=== PATIENT | male | born 1955 | race African-American/Black ===

== ENCOUNTER 2016-06-19 12:00 | Emergency (ER) | payer MEDICARE, OTHER ==
[~2016-06-19] VITALS: Ht 180.3 cm; Wt 122.7 kg
[~2016-06-19 12:00] MED LIST: ALLE10TA12; AMLO5TAB96 PO; CARB0.5D16 EACH EYE; CITA-48 PO; FISH1000 PO; HYDR1CAP30 PO; LISI2.5T55 PO; MECL-62 PO; METO50TA PO; NOVO7030P2 SQ; PRIMPOW10 XX; PROT40TA PO; ST JTAB PO; SYMB160A INH; TRAZ100 PO; ULTR50TA PO
[2016-06-19 12:03] VITALS: BP 180/117; PULSE 97; RESP 16; TEMP 98.1; O2SAT 98
[2016-06-19] MEDS ORDERED: ROBA500T PO (15:20)
[2016-06-19] MEDS ORDERED: NAPR500T PO (15:20)
--- NOTE | 2016-06-19 15:20 | PD ---
HPI Chief Complaint: Back/ Neck Pain or Injury Time Seen by Provider: 15:18 Travel History International Travel<30 days: No Contact w/Intl Traveler<30days: No Traveled to known affect area: No History of Present Illness HPI 60-year-old male presents to the emergency department with exacerbation of chronic low back pain. History of low back pain since the . Has history of sciatica also and says the pain is radiating down but the back of both of his legs. Has been moving in the past few days but says he hasn't lifted heavy stuff. Denies new or recent injury. Denies encopresis, incontinence, saddle anesthesias. Denies paresthesias, loss of sensation, decreased range of motion , decreased strength to bilateral lower extremities. Denies fever, chills, nausea, vomiting. Denies IV drug use. Denies cancer. [facility] and Percocet for his chronic low back pain but he asked for them to take him off of it, and they did. He says usually gets 2 injections that help with his exacerbations of his low back pain, but does not know the name of the medications. No other modifying factors or associated signs and symptoms. PFSH Past Medical History Arthritis: No Blood Disorders: No Anxiety: No Depression: No Heart Rhythm Problems: Yes Cancer: Yes ([facility], 2007) Cardiac Catheterization: Yes (06/04/10-[facility]) Cardiovascular Problems: Yes High Cholesterol: Yes Chest Pain: Yes Congestive Heart Failure: No Cerebrovascular Accident: No Coronary Artery Disease: Yes Diabetes: Yes Diminished Hearing: Yes ([facility]) Endocrine: Yes Gastrointestinal Disorders: No Genitourinary: No Hypertension: Yes Immune Disorder: No Implanted Vascular Access Dvce: Yes Insomnia: Yes Musculoskeletal: No Neurologic: No Psychiatric: No Reproductive: No Respiratory: No Immunizations Current: Yes Migraines: Yes Myocardial Infarction: No Radiation Therapy: No Seizures: Yes Thyroid Disease: No PNEUMOCCOCAL Vaccine (Year): 1 Past Surgical History AICD: Yes ([employer] - ICD E030 842469, LEAD 0182 [id number]) Body Medical Devices: AICD Cardiac Surgery: Yes (AICD) Coronary Artery Bypass Graft: No Neurologic Surgery: No Pacemaker: Yes Other Surgery: Yes (AICD PLACEMENT) Social History Alcohol Use: No Tobacco Use: No Substance Use: No Allergies-Medications (Allergen,Severity, Reaction): Coded Allergies: No Known Allergies (Verified , 06/19/16) Reported Meds & Prescriptions Reported Meds & Active Scripts Active Robaxin (Methocarbamol) 500 Mg Tab 500 Mg PO QID PRN Naproxen 500 Mg Tab 500 Mg PO BID PRN 10 Days Reported Protonix (Pantoprazole Sodium) 40 Mg Tab 40 Mg PO DAILY Symbicort (Budesonide/Formoterol Fumarate) 160 Mcg/4.5 Mcg Aer 2 Puff INH BID * SHAKE WELL BEFORE USE * Lisinopril 2.5 mg (Lisinopril) 2.5 Mg Tab 1 Tab PO DAILY Allergy (Loratadine) 10 Mg Tab DAILY Meclizine Hcl25 M2 25 Mg Tab 25 Mg PO BID Hydroxyzine Pam25 M1 25 Mg Cap 25 Mg PO TID Primidone 150 Mg XX BID PRN Trazodone HCl 100 Mg Tab 100 Mg PO HS Aspirin Ec Low Strength (Aspirin) 81 Mg Tab 81 Mg PO DAILY Ultram (Tramadol HCl) 50 Mg Tab 50 Mg PO Q6HR PRN Fish Oil 1,000 Mg Cap 1,000 Mg PO BID Artificial Tears 15 Ml Soln 1 Drop EACH EYE TID Novolin 70/30 (Insulin Human Isoph/Insulin Regular) 100 Units/Ml Inj 20 Units SQ BID Citalopram Hydrobromide 40 Mg Tab 20 Mg PO DAILY Norvasc (Amlodipine Besylate) 5 Mg Tab 10 Mg PO DAILY Metoprolol Tartrate 50 mg (Metoprolol Tartrate) 50 Mg Tab 75 Mg PO BID Review of Systems Except as stated in HPI: all other systems reviewed are Neg Physical Exam Narrative GENERAL: Well-nourished, well-developed male patient, in no acute distress SKIN: Warm and dry. HEAD: Atraumatic. Normocephalic. EYES: Pupils equal and round. No scleral icterus. No injection or drainage. ENT: Mucosa pink and moist. Airway patent. NECK: Trachea midline. CARDIOVASCULAR: Regular rate. RESPIRATORY: No accessory muscle use. GASTROINTESTINAL: Rounded. MUSCULOSKELETAL: Bilateral lower extremities supple and non-tense with 2+ pedal pulses and sensory intact; with full range of motion and 5/5 strength. Active dorsiflexion and extension of bilateral feet. Bilateral straight leg raise is negative for low back pain. Ambulatory with normal gait. Sitting up in bed at 90. No obvious deformities. No clubbing. No cyanosis. No edema. BACK: No midline point tenderness on palpation of the lumbar, thoracic, or cervical spine. Tenderness on palpation of bilateral iliosacral area. No obvious deformities. NEUROLOGICAL: Awake and alert. Oriented 3. No obvious cranial nerve deficits. Motor grossly within normal limits. Normal speech. Moves all extremities. 5/5 strength to all extremities. Sensory intact. PSYCHIATRIC: Appropriate mood and affect; insight and judgment normal. Data Data Last Documented VS Vital Signs Date Time Temp Pulse Resp B/P Pulse Ox O2 Delivery O2 Flow Rate FiO2 06/19/16 15:51 79 20 160/99 95 Room Air 06/19/16 12:03 98.1 Orders Ketorolac Inj (Toradol Inj) (06/19/16 15:30) Orphenadrine Inj (Norflex Inj) (06/19/16 15:30) [facility] Medical Decision Making Medical Screen Exam Complete: Yes Emergency Medical Condition: Yes Medical Record Reviewed: Yes Differential Diagnosis Acute exacerbation of chronic low back pain, sciatica, low back strain Narrative Course 60-year-old male physical exam consistent with acute exacerbation of chronic low back pain. No midline point tenderness on palpation of the lumbar spine. Repeatable tenderness to bilateral iliosacral areas. Patient also has sciatica with current exacerbation. [facility] Denies encopresis, incontinence, saddle anesthesias. Denies IV drug use or cancer. Patient is afebrile. He denies fever, chills, nausea, vomiting. Has history of hypertension and blood pressure is elevated in the ER. He is asymptomatic at this time and is compliant with his medications. Toradol and Norflex ordered. Blood pressure will be rechecked prior to discharge. 1604: Blood pressure recheck 160/99. Robaxin and naproxen prescribed for home. Patient is medically cleared and stable for discharge. Discussed reasons to return to the emergency department. Instructed patient to follow up with primary care provider. Patient agrees with treatment plan. The patients vital signs are stable and the patient is stable for outpatient follow-up and treatment. Patient discharged home, stable and in no acute distress. Diagnosis Primary Impression: Acute exacerbation of chronic low back pain Additional Impression: Sciatica Qualified Code: M54.31 - Bilateral sciatica Referrals: Primary Care Physician Patient Instructions: Acute Low Back Pain (ED), General Instructions, Sciatica (ED) Additional Instructions: Tylenol as directed and as needed for pain Robaxin as prescribed and as needed for muscle spasms Heating pad and/or ice to affected area to reduce pain Avoid aggravating activities; increase activity as tolerated Follow-up with primary care provider Return to emergency department immediately with worsening of symptoms Med/Other Pt SpecificInfo: Prescription(s) given Scripts Methocarbamol (Robaxin)500 Mg [id number] Mg PO QID PRN (MUSCLE SPASM) #30 TAB Ref 0 Prov:Olya Grajeda 06/19/16 Naproxen 500 Mg [id number] Mg PO BID PRN (PAIN SCALE 1 TO 10) 10 Days Ref 0 Prov:Olya Grajeda 06/19/16 Disposition: 01 DISCHARGE HOME Condition: Stable Olya Grajeda Jun 19, 2016 15:20
[2016-06-19] MEDS ORDERED: KETOROLAC TROMETHAMINE 60 MG/2 ML (IM) VIAL IM ONE (15:30)
[2016-06-19] MEDS ORDERED: ORPHENADRINE INJ 60 MG/2 ML AMP IM ONE (15:30)
[2016-06-19 15:51] VITALS: BP 160/99; PULSE 79; RESP 20; O2SAT 95
== END 2016-06-19 16:05 | disposition home or self-care (01) ==
LOC: NEPB 12:00
DX: M54.5 Low back pain (principal); G89.29 Other chronic pain; M54.30 Sciatica, unspecified side; E78.00 Pure hypercholesterolemia, unspecified; I10 Essential (primary) hypertension; E11.9 Type 2 diabetes mellitus without complications; Z79.4 Long term (current) use of insulin; Z95.0 Presence of cardiac pacemaker; Z95.810 Presence of automatic (implantable) cardiac defibrillator
CPT/HCPCS: 96372; 99283; J1885; J2360

== ENCOUNTER 2016-06-24 12:50 | Emergency (ER) | payer OTHER ==
[~2016-06-24] VITALS: Ht 180.3 cm; Wt 109.0 kg
[~2016-06-24 12:50] MED LIST changes: +NAPR500T PO; +ROBA500T PO
[2016-06-24 12:52] VITALS: BP 156/95; PULSE 98; RESP 14; TEMP 97.9; O2SAT 97
[2016-06-24] MEDS ORDERED: KETOROLAC TROMETHAMINE 60 MG/2 ML (IM) VIAL IM ONE (14:00)
[2016-06-24] MEDS ORDERED: methylPREDNISolone SOD SUCC 125 MG/2 ML VIAL IM ONE (14:00)
[2016-06-24] MEDS ORDERED: ORPHENADRINE INJ 60 MG/2 ML AMP IM ONE (14:00)
[2016-06-24 14:36] VITALS: BP 134/71; PULSE 88; TEMP 98.5; O2SAT 94
[2016-06-24 15:00] VITALS: RESP 17
[2016-06-24] MEDS ORDERED: PANT40TA3 PO (15:02)
[2016-06-24] MEDS ORDERED: NAPR500 PO (15:02)
[2016-06-24] MEDS ORDERED: ASPI1TAB91 PO (15:02)
[2016-06-24] MEDS ORDERED: AMLO10TA2 PO (15:02)
[2016-06-24] MEDS ORDERED: VENL75TA PO (15:02)
[2016-06-24] MEDS ORDERED: CITA40TA4 PO (15:02)
[2016-06-24] MEDS ORDERED: LEVI20TA PO (15:02)
[2016-06-24] MEDS ORDERED: TRAZ100T4 PO (15:02)
[2016-06-24] MEDS ORDERED: METO100T PO (15:02)
[2016-06-24] MEDS ORDERED: PRIM50TA5 PO (15:02)
[2016-06-24] MEDS ORDERED: HYDR1CAP30 PO (15:02)
[2016-06-24] MEDS ORDERED: MULTTAB62 PO (15:02)
[2016-06-24] MEDS ORDERED: NOVO7030P2 SQ (15:02)
[2016-06-24] MEDS ORDERED: ROBA500T PO (15:02)
--- NOTE | 2016-06-24 15:20 | PD ---
HPI Chief Complaint: Back/ Neck Pain or Injury Time Seen by Provider: 13:37 Travel History International Travel<30 days: No Contact w/Intl Traveler<30days: No Traveled to known affect area: No History of Present Illness HPI This patient complains of back pain. He has left low back pain radiating down his left leg to about the mid calf level. He has history of flares of back pain just like this for the last 35 years. He follows at the [facility] and has an orthopedist. He has not contacted the orthopedist for follow-up. He was seen here few days ago and prescribed some medication which aren't really helping him that much. He does not want narcotics. No injury. No neurologic deficit. Denies fever. Severity is moderate. PFSH Past Medical History Arthritis: No Blood Disorders: No Anxiety: No Depression: No Heart Rhythm Problems: Yes Cancer: Yes ([facility], 2007) Cardiac Catheterization: Yes (06/04/10-[facility]) Cardiovascular Problems: Yes High Cholesterol: Yes Chest Pain: Yes Congestive Heart Failure: No Cerebrovascular Accident: No Coronary Artery Disease: Yes Diabetes: Yes Patient Takes Glucophage: No (insulin) Diminished Hearing: Yes ([facility]) Endocrine: Yes Gastrointestinal Disorders: No Genitourinary: No Hypertension: Yes Immune Disorder: No Implanted Vascular Access Dvce: Yes Insomnia: Yes Musculoskeletal: No Neurologic: No Psychiatric: No Reproductive: No Respiratory: No Immunizations Current: Yes Migraines: Yes Myocardial Infarction: No Radiation Therapy: No Seizures: Yes Thyroid Disease: No Tetanus Vaccination: < 5 Years PNEUMOCCOCAL Vaccine (Year): 1 Past Surgical History AICD: Yes ([employer] - ICD E030 795150, LEAD 0189 [id number]) Body Medical Devices: AICD Cardiac Surgery: Yes (AICD) Coronary Artery Bypass Graft: No Neurologic Surgery: No Pacemaker: Yes Other Surgery: Yes (AICD PLACEMENT) Family History Family Myocardial Infarction: Yes (mother) Social History Alcohol Use: No Tobacco Use: No Substance Use: No Allergies-Medications (Allergen,Severity, Reaction): Coded Allergies: No Known Allergies (Verified , 06/24/16) Reported Meds & Prescriptions Reported Meds & Active Scripts Active Reported Metoprolol Tartrate 100 Mg Tab 100 Mg PO Q12HR Aspirin Adult Low Strength (Aspirin) 81 Mg Tabdr 81 Mg PO DAILY Robaxin (Methocarbamol) 500 Mg Tab 500 Mg PO QID PRN Multi-Vitamin/Minerals (Multiple Vitamins W/ Minerals) 1 Tab Tab 1 Tab PO DAILY Effexor (Venlafaxine HCl) 75 Mg Tab 225 Mg PO DAILY Primidone 50 Mg Tab 150 Mg PO BID Pantoprazole (Pantoprazole Sodium) 40 Mg Tab 40 Mg PO BIDAC Levitra (Vardenafil) 20 Mg Tab 20 Mg PO DAILY PRN Naprosyn (Naproxen) 500 Mg Tab 500 Mg PO BID Trazodone (Trazodone HCl) 100 Mg Tab 300 Mg PO HS PRN Citalopram (Citalopram Hydrobromide) 40 Mg Tab 40 Mg PO DAILY Hydroxyzine Pamoate 25 Mg Cap 25 Mg PO TID Novolin 70-30 Inj (Insulin Human Isoph/Insulin Regular) 1,000 Unit/10 Ml Vial 30 Units SQ BIDAC Amlodipine (Amlodipine Besylate) 10 Mg Tab 10 Mg PO DAILY Review of Systems General / Constitutional: No: Fever HENT: No: Headaches Cardiovascular: No: Chest Pain or Discomfort Respiratory: No: Cough Physical Exam Narrative GASTROINTESTINAL: Abdomen soft, non-tender, nondistended. Positive bowel sounds. No hepato-splenomegaly, or palpable masses. No guarding. SKIN: Inspection shows no rash or ulcers. Palpation shows no induration or nodules. NEUROLOGICAL: Awake and alert. Pupils are equal round and reactive. Motor and sensory grossly within normal limits. Five out of 5 muscle strength in all muscle groups. Normal speech. Positive straight leg raise on the left side and negative crossed straight leg raise Back: No midline or CVA tenderness. Data Data Last Documented VS Vital Signs Date Time Temp Pulse Resp B/P Pulse Ox O2 Delivery O2 Flow Rate FiO2 06/24/16 14:36 98.5 88 134/71 94 06/24/16 13:36 18 06/24/16 12:52 Room Air Orders Ketorolac Inj (Toradol Inj) (06/24/16 14:00) Methylprednisolone So Succ Inj (Solumedr (06/24/16 14:00) Orphenadrine Inj (Norflex Inj) (06/24/16 14:00) MDM Medical Decision Making Medical Screen Exam Complete: Yes Emergency Medical Condition: Yes Medical Record Reviewed: Yes Differential Diagnosis Sciatica, lumbar strain, pyelonephritis Narrative Course I have reviewed the patient's electronic medical record. Reviewed his visit from a few days ago when he was here for the same thing Presentation seems very consistent with one of his flares of chronic sciatica. He is neurologically intact and there is no red flags to suggest emergent imaging is indicated. He says that steroid injection is helpful to him and requests that He does not want narcotics I gave him injection of Norflex and Solu-Medrol and Toradol He does have an orthopedist I encouraged him to follow up with Diagnosis Primary Impression: Acute exacerbation of chronic low back pain Additional Instructions: The patient was advised to follow up with their physician and return if they worsen. Med/Other Pt SpecificInfo: Other Disposition: 01 DISCHARGE HOME Condition: Stable Armando Campbell MD Jun 24, 2016 15:20
[2016-06-24 15:57] VITALS: BP 140/76; TEMP 98
== END 2016-06-24 15:30 | disposition home or self-care (01) ==
LOC: NEPD 12:50
DX: M54.5 Low back pain (principal); E11.9 Type 2 diabetes mellitus without complications; I10 Essential (primary) hypertension; E78.00 Pure hypercholesterolemia, unspecified
CPT/HCPCS: 96372; 99283; J1885; J2360; J2930

== ENCOUNTER 2017-03-30 15:13 | Emergency (ER) | payer OTHER ==
[~2017-03-30] VITALS: Ht 180.3 cm; Wt 123.0 kg
[~2017-03-30 15:13] MED LIST changes: -ALLE10TA12; +AMLO10TA2 PO; -AMLO5TAB96 PO; +ASPI1TAB91 PO; -CARB0.5D16 EACH EYE; -CITA-48 PO; +CITA40TA4 PO; -FISH1000 PO; +LEVI20TA PO; -LISI2.5T55 PO; -MECL-62 PO; +METO100T PO; -METO50TA PO; +MULTTAB62 PO; +NAPR500 PO; -NAPR500T PO; +PANT40TA3 PO; +PRIM50TA5 PO; -PRIMPOW10 XX; -PROT40TA PO; -ST JTAB PO; -SYMB160A INH; -TRAZ100 PO; +TRAZ100T4 PO; -ULTR50TA PO; +VENL75TA PO
[2017-03-30 15:15] VITALS: BP 110/61; PULSE 84; RESP 16; TEMP 98.6; O2SAT 94
== END 2017-03-30 19:50 | disposition left against medical advice (07) ==
LOC: NED 15:13
DX: R06.02 Shortness of breath (principal); Z53.21 Procedure and treatment not carried out due to patient leaving prior to being seen by health care provider
CPT/HCPCS: 99281

== ENCOUNTER 2017-11-15 08:09 | Emergency (ER) | payer OTHER ==
[~2017-11-15] VITALS: Ht 180.3 cm; Wt 120.0 kg
[~2017-11-15 08:09] MED LIST changes: -ASPI1TAB91 PO; +ASPI81TA16 PO
[2017-11-15 08:15] VITALS: BP 142/87; PULSE 94; RESP 16; TEMP 97.9; O2SAT 95
[2017-11-15] MEDS ORDERED: TRAZ300T2 PO (08:27)
[2017-11-15] MEDS ORDERED: traMADol HCL 50 MG TAB PO ONE (08:45)
--- NOTE | 2017-11-15 09:02 | RADRPT ---
EXAM DATE: 11/15/2017 8:58 AM EDT AGE/SEX: 62 years / Male INDICATIONS: Bilateral left ankle pain, fell CLINICAL DATA: This is the patient's initial encounter. Patient reports that signs and symptoms have been present for 2 days and indicates a pain score of 8/10. MEDICAL/SURGICAL HISTORY: . Hypercholesterolemia. Hypertension. Diabetes mellitus type 2. Coron beatriz artery disease . Defibrillator, pacemaker, cardiac catheterization COMPARISON: No prior [facility] exams available for comparison. FINDINGS: Multiple views of the left ankle demonstrate a spiral comminuted fracture, nondisplaced involving the distal fibula with extension to the ankle mortise. The ankle mortise is symmetric and the talar dome is intact. Moderate lateral soft tissue edema is present. CONCLUSION: Comminuted nondisplaced fracture of the distal left fibula with extension to the ankle mortise. No ev idence of ankle mortise disruption. Electronically signed by: Krysta Barros MD 11/15/2017 9:01 AM EDT
--- NOTE | 2017-11-15 09:03 | RADRPT ---
EXAM DATE: 11/15/2017 9:00 AM EDT AGE/SEX: 62 years / Male INDICATIONS: Evaluate pelvis for trauma, fell CLINICAL DATA: This is the patient's initial encounter. Patient reports that signs and symptoms have been present for 2 days and indicates a pain score of 0/10. MEDICAL/SURGICAL HISTORY: . Hypercholesterolemia. Hypertension. Diabetes mellitus type 2. Coron beatriz artery disease . Defibrillator, pacemaker, cardiac catheterization COMPARISON: No prior [facility] exams available for comparison. FINDINGS: Examination of the pelvis demonstrates no evidence of fracture or dislocation. Bony mineralization i s normal. There is no widening of the sacroiliac joints. No foreign body is identified. CONCLUSION: No evidence of fracture. Electronically signed by: Krysta Barros MD 11/15/2017 9:01 AM EDT
[2017-11-15 10:08] VITALS: RESP 16
[2017-11-15] MEDS ORDERED: TRAM50TA PO (11:51)
--- NOTE | 2017-11-15 11:51 | PD ---
HPI Chief Complaint: Pain: Acute or Chronic Time Seen by Provider: 08:23 Travel History International Travel<30 days: No Contact w/Intl Traveler<30days: No Traveled to known affect area: No History of Present Illness HPI Patient is a 62 year old male who comes in complaining of pain to his left ankle after a fall last night. Patient says that he fell getting out of a cab last night. He had his left ankle when he fell. He denies hitting his head. He has been walking, but with then. He says he tried putting some Voltaren cream on it which is helped somewhat, but he is still having a lot of pain. He denies any loss of consciousness. He was in his normal state of health prior to the fall. He does have some pain to his right hip. Severity is mild to moderate. PFSH Past Medical History Arthritis: No Blood Disorders: No Anxiety: No Depression: No Heart Rhythm Problems: Yes Cancer: Yes ([facility], 2007) Cardiac Catheterization: Yes (06/04/10[facility]) Cardiovascular Problems: Yes High Cholesterol: Yes Chest Pain: Yes Congestive Heart Failure: No Cerebrovascular Accident: No Coronary Artery Disease: Yes Diabetes: Yes Patient Takes Glucophage: No Diminished Hearing: Yes ([facility] E[facility]) Endocrine: Yes Gastrointestinal Disorders: No Genitourinary: No Hypertension: Yes Immune Disorder: No Implanted Vascular Access Dvce: Yes Insomnia: Yes Musculoskeletal: No Neurologic: No Psychiatric: No Reproductive: No Respiratory: No Immunizations Current: Yes Migraines: Yes Myocardial Infarction: No Radiation Therapy: No Seizures: Yes Thyroid Disease: No Tetanus Vaccination: < 5 Years Influenza Vaccination: Yes PNEUMOCCOCAL Vaccine (Year): 1 Past Surgical History AICD: Yes ([employer] - ICD E030 [id number], LEAD 0189 [id number]) Body Medical Devices: AICD Cardiac Surgery: Yes (AICD) Coronary Artery Bypass Graft: No Neurologic Surgery: No Pacemaker: Yes Other Surgery: Yes (AICD PLACEMENT) Family History Family Myocardial Infarction: Yes (mother) Social History Alcohol Use: No Tobacco Use: No Substance Use: No Allergies-Medications (Allergen,Severity, Reaction): Coded Allergies: No Known Allergies (Verified Adverse Reaction, Unknown, 11/15/17) Reported Meds & Prescriptions Reported Meds & Active Scripts Active Reported Trazodone (Trazodone HCl) 300 Mg Tab 300 Mg PO HS Metoprolol Tartrate 100 Mg Tab 100 Mg PO Q12HR Aspirin Adult Low Strength (Aspirin) 81 Mg Tabdr 81 Mg PO DAILY Robaxin (Methocarbamol) 500 Mg Tab 500 Mg PO QID PRN Multi-Vitamin/Minerals (Multiple Vitamins W/ Minerals) 1 Tab Tab 1 Tab PO DAILY Effexor (Venlafaxine HCl) 75 Mg Tab 225 Mg PO DAILY Primidone 50 Mg Tab 150 Mg PO BID Pantoprazole (Pantoprazole Sodium) 40 Mg Tab 40 Mg PO BIDAC Levitra (Vardenafil) 20 Mg Tab 20 Mg PO DAILY PRN Naprosyn (Naproxen) 500 Mg Tab 500 Mg PO BID Citalopram (Citalopram Hydrobromide) 40 Mg Tab 40 Mg PO DAILY Hydroxyzine Pamoate 25 Mg Cap 25 Mg PO TID Novolin 70-30 Inj (Insulin Human Isoph/Insulin Regular) 1,000 Unit/10 Ml Vial 30 Units SQ BIDAC Amlodipine (Amlodipine Besylate) 10 Mg Tab 10 Mg PO DAILY Review of Systems General / Constitutional: No: Fever, Chills HENT: No: Headaches, Lightheadedness Cardiovascular: No: Chest Pain or Discomfort Respiratory: No: Shortness of Breath Gastrointestinal: No: Nausea, Vomiting Musculoskeletal: Positive: Edema, Pain Skin: No Rash, No Change in Pigmentation Neurologic: No: Weakness, Dizziness, Sensory Disturbance Physical Exam Narrative GENERAL: Awake and alert, in no acute distress. SKIN: Focused skin assessment warm/dry. HEAD: Atraumatic. Normocephalic. EYES: Pupils equal and round. No scleral icterus. EOMI. ENT: Mucous membranes pink and moist. NECK: Trachea midline. No JVD. No Cervical spine tenderness. CARDIOVASCULAR: Regular rate and rhythm. No murmur appreciated. RESPIRATORY: No accessory muscle use. Clear to auscultation. Breath sounds equal bilaterally. MUSCULOSKELETAL: No obvious deformities. No clubbing. No cyanosis. Swelling of the left ankle, tenderness to palpation of the lateral malleolus. Pedal pulses intact. NEUROLOGICAL: Awake and alert. No obvious cranial nerve deficits. Motor grossly within normal limits. Normal speech. Data Data Last Documented VS Vital Signs Date Time Temp Pulse Resp B/P (MAP) Pulse Ox O2 Delivery O2 Flow Rate FiO2 11/15/17 10:08 16 6/3/18 08:25 78 11/15/17 08:15 97.9 142/87 (105) 95 Orders Orders Pelvis, Ap Only (Routine) (11/15/17 ) Ankle, Complete ([id number]) (11/15/17 ) Tramadol (Ultram) (11/15/17 08:45) [employer] Request For Service (11/15/17 09:52) Splinting (11/15/17 ) MDM Medical Decision Making Medical Screen Exam Complete: Yes Emergency Medical Condition: Yes Medical Record Reviewed: Yes Differential Diagnosis Ankle fracture versus ankle sprain versus hip fracture Narrative Course Patient is a 62-year-old male who comes in complaining this night. Exam shows swelling and tenderness of the left ankle. X-ray of the ankle shows a distal fibular fracture, nondisplaced. X-ray of the pelvis shows no acute abnormalities. Last 24 hours Impressions Pelvis X-Ray 11/15/17 0000 Signed Impressions: CONCLUSION: No evidence of fracture. Ankle X-Ray 11/15/17 0000 Signed Impressions: CONCLUSION: Comminuted nondisplaced fracture of the distal left fibula with extension to th e ankle mortise. No evidence of ankle mortise disruption. Patient already has limited mobility. I do not believe he would be able to get around on crutches with a splint. He was given a Cam walking boot and advised to stay off of his foot. Advised to follow-up with orthopedics as soon as possible. He says he will call tomorrow morning to make an appointment. He was given tramadol for pain and says this helped. He will be given a prescription. Advised return to the ED as needed for any worsening symptoms. Diagnosis Primary Impression: Ankle fracture, left Qualified Codes: S82.892A - Other fracture of left lower leg, initial encounter for closed fracture Referrals: Dayton Elliott MD call for appointment Patient Instructions: Ankle Fracture (ED), General Instructions Additional Instructions: Follow-up with orthopedics as soon as possible. Try to avoid walking on her left foot as much as possible. Keep the boot on. Return to the ED as needed for any worsening symptoms. Scripts Tramadol (Tramadol) 50 Mg Tab 50 MG PO Q6H Y for PAIN, #10 TAB 0 Refills Prov: Phyllis Baires MD 11/15/17 Disposition: 01 DISCHARGE HOME Condition: Stable Phyllis Baires MD Nov 15, 2017 11:51
[2017-11-15 11:56] VITALS: BP 112/55
== END 2017-11-15 12:06 | disposition home or self-care (01) ==
LOC: NEPE 08:09
DX: S82.892A Other fracture of left lower leg, initial encounter for closed fracture (principal); W17.89XA Other fall from one level to another, initial encounter; I10 Essential (primary) hypertension; I25.10 Atherosclerotic heart disease of native coronary artery without angina pectoris; E78.00 Pure hypercholesterolemia, unspecified; E11.9 Type 2 diabetes mellitus without complications; Z85.038 Personal history of other malignant neoplasm of large intestine; Z95.810 Presence of automatic (implantable) cardiac defibrillator; Z79.4 Long term (current) use of insulin; Z79.899 Other long term (current) drug therapy
CPT/HCPCS: 72170; 73610; 99284; L2114

== ENCOUNTER 2017-11-17 15:40 | Emergency (ER) | payer OTHER, MEDICARE ==
[~2017-11-17] VITALS: Ht 175.3 cm; Wt 110.0 kg
[~2017-11-17 15:40] MED LIST changes: +TRAM50TA PO; -TRAZ100T4 PO; +TRAZ300T2 PO
[2017-11-17 15:47] VITALS: BP 147/85; PULSE 88; RESP 13; TEMP 98.2; O2SAT 97
--- NOTE | 2017-11-17 16:33 | PD ---
HPI Chief Complaint: knee swelling Time Seen by Provider: 16:12 Travel History International Travel<30 days: No Contact w/Intl Traveler<30days: No Traveled to known affect area: No History of Present Illness HPI 62-year-old male presents with left knee pain and swelling. He was just here a couple days ago and diagnosed with a left ankle fracture. [place] was [place] and sent [place]. He denies any fever, wounds or any other concurrent complaints. Quality is swollen. Severity is moderate. Patient is a poor historian so history is limited. PFSH Past Medical History Arthritis: No Asthma: No Autoimmune Disease: No Blood Disorders: No Anxiety: No Depression: No Heart Rhythm Problems: Yes Cancer: Yes ([facility], 2007) Cardiac Catheterization: Yes (06/04/10-[facility]) Cardiovascular Problems: Yes High Cholesterol: Yes Chemotherapy: No Chest Pain: Yes Congestive Heart Failure: No COPD: No Cerebrovascular Accident: No Coronary Artery Disease: Yes Diabetes: Yes Patient Takes Glucophage: No Diminished Hearing: Yes ([facility]) Endocrine: Yes Gastrointestinal Disorders: No GERD: No Glaucoma: No Genitourinary: No Headaches: No Hepatitis: No Hiatal Hernia: No Heparin Induced Thrombocytopen: No Hypertension: Yes Immune Disorder: No Implanted Vascular Access Dvce: Yes Insomnia: Yes Kidney Stones: No Musculoskeletal: Yes (Fractured tibia ) Neurologic: No Psychiatric: No Reproductive: No Respiratory: No Immunizations Current: Yes Migraines: Yes Myocardial Infarction: No Radiation Therapy: No Renal Failure: No Seizures: Yes Sickle Cell Disease: No Sleep Apnea: No Thyroid Disease: No Ulcer: No PNEUMOCCOCAL Vaccine (Year): 1 ?: Not Past Surgical History Abdominal Surgery: No AICD: Yes ([employer] - ICD E030 [id number], LEAD [id number]) Appendectomy: No Arteriovenous Shunt: No Body Medical Devices: AICD Cardiac Surgery: Yes (AICD) Cholecystectomy: No Coronary Artery Bypass Graft: No Ear Surgery: No Endocrine Surgery: No Eye Surgery: No Genitourinary Surgery: No Gynecologic Surgery: No Joint Replacement: No Neurologic Surgery: No Oral Surgery: No Pacemaker: Yes Thoracic Surgery: No Other Surgery: Yes (AICD PLACEMENT) Family History Family Myocardial Infarction: Yes (mother) Social History Alcohol Use: No Tobacco Use: No Substance Use: No Allergies-Medications (Allergen,Severity, Reaction): Coded Allergies: No Known Allergies (Verified Adverse Reaction, Unknown, 11/15/17) Reported Meds & Prescriptions Reported Meds & Active Scripts Active Tramadol (Tramadol HCl) 50 Mg Tab 50 Mg PO Q6H PRN Reported Vitamin E (Vitamin E Acid Succinate) 400 Unit Tablet 400 Units PO DAILY Vitamin B-12 (Cyanocobalamin) 1,000 Mcg Tab 1,000 Mcg PO DAILY Flomax (Tamsulosin HCl) 0.4 Mg Cap 0.4 Mg PO HS Cialis (Tadalafil) 5 Mg Tab 20 Mg PO DAILY PRN Do not exceed 1 dose/day. Sodium Chloride Gary (Sodium Chloride) 0.65 % Spr 2 Gary EACH NARE QID Motion Sickness Relief (Meclizine HCl) 25 Mg Chew 25 Mg PO BID Lisinopril 2.5 Mg Tab 2.5 Mg PO DAILY Ketoconazole Topical 2% Cream 1 Applic TOPICAL BID Ipratropium Nasal 0.06% Gary 1 Gary EACH NARE TID Flonase Nasal Gary (Fluticasone Nasal Gary) 50 Mcg/Act Gary 1 Spr EACH NARE BID Voltaren (Diclofenac Sodium) 1 % Gel..gram. 1 Applic TOPICAL QID Zyrtec (Cetirizine HCl) 10 Mg Tablet 10 Mg PO DAILY PRN Symbicort Inh (Budesonide/Formoterol Fumarate) 160-4.5 Mcg/Act Aero 2 Puff INH Q12HR Lipitor (Atorvastatin Calcium) 40 Mg Tab 20 Mg PO HS Combivent Respimat Inh (Ipratropium-Albuterol Inh) 20-100 Usp/Act Aero 1 Puff INH QID PRN Trazodone (Trazodone HCl) 300 Mg Tab 300 Mg PO HS Metoprolol Tartrate 100 Mg Tab 100 Mg PO Q12HR Aspirin Adult Low Strength (Aspirin) 81 Mg Tabdr 81 Mg PO DAILY Effexor (Venlafaxine HCl) 75 Mg Tab 225 Mg PO DAILY Primidone 50 Mg Tab 150 Mg PO BID Pantoprazole (Pantoprazole Sodium) 40 Mg Tab 40 Mg PO BIDAC Naprosyn (Naproxen) 500 Mg Tab 500 Mg PO BID PRN Novolin 70-30 Inj (Insulin Human Isoph/Insulin Regular) 1,000 Unit/10 Ml Vial 30 Units SQ BIDAC Amlodipine (Amlodipine Besylate) 10 Mg Tab 10 Mg PO DAILY Review of Systems Except as stated in HPI: all other systems reviewed are Neg Physical Exam Narrative GENERAL: 62-year-old male in no apparent distress SKIN: Focused skin assessment warm/dry. HEAD: Atraumatic. Normocephalic. EYES: Pupils equal and round. No scleral icterus. No injection or drainage. ENT: No nasal bleeding or discharge. Mucous membranes pink and moist. NECK: Trachea midline. No JVD. CARDIOVASCULAR: Regular rate and rhythm. RESPIRATORY: No accessory muscle use. Clear to auscultation. Breath sounds equal bilaterally. GASTROINTESTINAL: Abdomen soft, non-tender, nondistended. MUSCULOSKELETAL: No obvious deformities. No clubbing. No cyanosis. No lower extremity edema. No calf pain, patient has compressive bandage up to knee level which was removed and patient with left knee swelling and pain noted NEUROLOGICAL: Awake and alert. No obvious cranial nerve deficits. Motor grossly within normal limits. Normal speech. PSYCHIATRIC: Appropriate mood and affect; insight and judgment normal. Data Data Last Documented VS Vital Signs Date Time Temp Pulse Resp B/P (MAP) Pulse Ox O2 Delivery O2 Flow Rate FiO2 11/17/17 15:47 98.2 88 13 147/85 (105) 97 Orders Orders Knee, Complete (4vws) (11/17/17 ) Splint Or Brace Apply/Monitor (11/17/17 16:25) Oxycodone-Acetamin 5-325 Mg (Percocet (11/17/17 17:00) Ed Discharge Order (11/17/17 17:04) [facility] Medical Decision Making Medical Screen Exam Complete: Yes Emergency Medical Condition: Yes Medical Record Reviewed: Yes (pmh confirmed) Interpretation(s) Last 24 hours Impressions Knee X-Ray 11/17/17 0000 Signed Impressions: CONCLUSION: Small joint effusion Differential Diagnosis fracture, post traumatic effusion, strain Narrative Course Will check knee x-ray to rule out concurrent proximal injury and have splint placed. X-ray without concurrent injury. Will write prescription for a walker and have follow closely with orthopedic physician and primary care physician. Patient denies any new complaints and states that they are feeling better. Patient happy with care, all questions answered. Patient knows that follow up is incumbent on them and to return to the emergency room immediately if new or worsening symptoms develop. Patient given strict return precautions, vitals reviewed and are normal, agrees to further workup as an outpatient. Diagnosis Primary Impression: Pain and swelling of left knee Referrals: Orthopedist call for appointment Patient Instructions: General Instructions Additional Instructions: elevate leg at rest, use walker and no weight bearing to left leg, return as needed Med/Other Pt SpecificInfo: Prescription(s) given, No Change to Meds Disposition: 01 DISCHARGE HOME Condition: Stable Silvia Lafleur MD Nov 17, 2017 16:33
--- NOTE | 2017-11-17 16:51 | RADRPT ---
EXAM DATE: 11/17/2017 4:48 PM EDT AGE/SEX: 62 years / Male INDICATIONS: Swelling. CLINICAL DATA: This is the patient's initial encounter. Patient reports that signs and symptoms have been present for 4 - 6 days and indicates a pain score of 10/10. MEDICAL/SURGICAL HISTORY: . Hypercholesterolemia. Hypertension. Diabetes mellitus type 2. Coron beatriz artery disea . Defibrillator, pacemaker, cardiac catheterization COMPARISON: No prior [facility] exams available for comparison. FINDINGS: Bony structures are intact and in normal alignment. Joints are intact without dislocation or signifi cant arthropathy. Osseous density is normal. Soft tissues are unremarkable. No radiopaque foreign bodies seen. Small joint effusion. Some spurring of the quadriceps insertion CONCLUSION: Small joint effusion Electronically signed by: Seamus Salazar MD 11/17/2017 4:50 PM EDT
[2017-11-17] MEDS ORDERED: VITA400T18 PO (16:54)
[2017-11-17] MEDS ORDERED: MOTI25CH PO (16:54)
[2017-11-17] MEDS ORDERED: CIAL5TAB PO (16:54)
[2017-11-17] MEDS ORDERED: SODI0.65 EACH NARE (16:54)
[2017-11-17] MEDS ORDERED: LIPI40TA PO (16:54)
[2017-11-17] MEDS ORDERED: CETI-1 PO (16:54)
[2017-11-17] MEDS ORDERED: VITA10002 PO (16:54)
[2017-11-17] MEDS ORDERED: IPRAAER INH (16:54)
[2017-11-17] MEDS ORDERED: FLUT1SPR5 EACH NARE (16:54)
[2017-11-17] MEDS ORDERED: VOLT1GEL16 TOPICAL (16:54)
[2017-11-17] MEDS ORDERED: KETO2CRE TOPICAL (16:54)
[2017-11-17] MEDS ORDERED: TAMS5CAP PO (16:54)
[2017-11-17] MEDS ORDERED: IPRA0.06 EACH NARE (16:54)
[2017-11-17] MEDS ORDERED: SYMB160A INH (16:54)
[2017-11-17] MEDS ORDERED: LISI2.5T3 PO (16:54)
[2017-11-17] MEDS ORDERED: oxyCODONE/ACETAMINOPHEN 5 MG/325 MG TAB PO ONE (17:00)
== END 2017-11-17 17:41 | disposition home or self-care (01) ==
LOC: NEPE 15:40
DX: M25.462 Effusion, left knee (principal); I10 Essential (primary) hypertension; I25.10 Atherosclerotic heart disease of native coronary artery without angina pectoris; E78.00 Pure hypercholesterolemia, unspecified; E11.9 Type 2 diabetes mellitus without complications; Z85.038 Personal history of other malignant neoplasm of large intestine; Z95.810 Presence of automatic (implantable) cardiac defibrillator; Z79.4 Long term (current) use of insulin; Z79.899 Other long term (current) drug therapy
CPT/HCPCS: 29515; 73564